=== PATIENT | male | born 1975 | race African-American/Black ===

== ENCOUNTER 2025-07-05 03:53 | Emergency (ER) | payer OTHER ==
[2025-07-05 04:30] LABS: Actual Bicarbonate (HCO3a) 22.7 mEq/L (22-28); Analyzer IN Cardio ER; Base Excess (BEa) -1.4 mEq/L (-2.0 to +3.0); CO2 Tension 36.5 mmHg (35.0-45.0); Calcium, Ionized (arterial) 1.18 mmol/L (1.12-1.30); Hematocrit-ABG 44 % (42.0-52.0); Hemoglobin (Hb) 15.0 g/dL (14.0-18.0); O2 Tension (PaO2), arterial 96.1 mmHg (80.0-100.0); Potassium - ABG Lab 3.88 mmol/L (3.70-5.30); pH, Arterial 7.412 (7.35-7.45)
[2025-07-05 04:32] LABS: ALV-art Gradient 8.005 mmHg (0-20); Puncture Site Right Brachial art
== END 2025-07-05 05:10 | disposition home or self-care (01) ==
LOC: ERS 03:53
DX: Z77.110 Contact with and (suspected) exposure to air pollution (principal); F17.210 Nicotine dependence, cigarettes, uncomplicated
CPT/HCPCS: 36600; 71045; 82805; 93005